=== PATIENT | female | born 1990 | race African-American/Black ===

== ENCOUNTER 2019-06-12 19:48 | Emergency (ER) | payer SELFPAY ==
--- NOTE | 2019-06-12 19:50 | NUR ---
PATIENT CALLED TO BE TRIAGE , NO RESPONSE PATIENT LEFT WITHOUT BEING SEEN BY DR. JIMENEZ. NO FURTHER CARE PROVIDED FOR PATIENT.
--- NOTE | 2019-06-12 19:55 | NUR ---
CALLED FOR THE SECOND TIME NO RESPONSE
--- NOTE | 2019-06-12 20:00 | NUR ---
CALLED [facility] THE SECOND TIME , NO RESPONSE
== END 2019-06-12 19:50 | disposition left against medical advice (07) ==
LOC: MED 19:48
DX: R51 Headache (principal); Z53.21 Procedure and treatment not carried out due to patient leaving prior to being seen by health care provider